=== PATIENT | female | born 1995 | race Caucasian/White ===

== ENCOUNTER 2018-07-22 14:32 | Emergency (ER) | payer MEDICAID ==
[~2018-07-22] VITALS: Ht 157.5 cm; Wt 77.1 kg
[2018-07-22 14:35] VITALS: BP_SYST 129
[2018-07-22 16:30] VITALS: BP_SYST 112
== END 2018-07-22 16:30 | disposition home or self-care (01) ==
LOC: SED 14:32
DX: S40.212A Abrasion of left shoulder, initial encounter (principal); M94.0 Chondrocostal junction syndrome [Tietze]; K21.9 Gastro-esophageal reflux disease without esophagitis; X58.XXXA Exposure to other specified factors, initial encounter; Y93.89 Activity, other specified; Y92.89 Other specified places as the place of occurrence of the external cause; Y99.8 Other external cause status
CPT/HCPCS: 71046-TC; 81025; 93005; 99284